=== PATIENT | female | born 1945 | race Caucasian/White ===

== ENCOUNTER 2016-08-18 09:52 | Outpatient (CLI) | payer OTHER ==
--- NOTE | 2016-08-18 11:51 | DIAGNOSTIC IMAGING REPORT ---
PROCEDURE: CT THORAX WITH CONTRAST INDICATION: LUNG MASS, follow-up. TECHNIQUE: 125 ml of Isovue 300 was injected intravenously and axial images were obtained of the chest with coronal and sagittal reformations. COMPARISON: CT chest 02/06/2016. FINDINGS: Resolved and lingular atelectasis with minor residual scarring. No change in the anterior right middle lobe scarring with bronchiectasis. No infiltrates or pulmonary nodules. No adenopathy or effusion. Ascending aorta measures 3.5 cm. Mild cardiomegaly. No coronary atherosclerosis. Small left renal cyst. The visualized upper abdomen is otherwise unremarkable. Mild degenerative changes of the spine. IMPRESSION: 1. Resolved lingular atelectasis with minor residual scarring 2. Stable anterior right middle lobe scarring with bronchiectasis 3. Mild cardiomegaly.
--- NOTE | 2016-08-18 13:56 | DIAGNOSTIC IMAGING REPORT ---
PROCEDURE: MR UPPER EXTREMITY W/O CONT-RT INDICATION: RT SHOULDER PAIN TECHNIQUE: PD and FAT-SAT PD, axial, and coronal-oblique images. PD and STIR sagittal-oblique images. COMPARISON: None. FINDINGS: Caudal angulation of type 2 acromion resulting in mild impingement. Mild AC joint degenerative changes. Thickening and heterogeneous signal of the rotator cuff consistent with tendinosis. There are 2 low signal structures adjacent to the greater tuberosity measuring 5 and 3 mm consistent with calcific tendonitis. There is also a full-thickness tear of the distal supraspinatus tendon anteriorly which measures at 1.6 cm AP. Rotator interval edema suggestive of a tear. Mild subdeltoid and subacromial bursal effusions. Increased signal of the superior labrum suspicious for a tear. Tendinosis of the long head of the bicipital tendon. Normal glenohumeral ligaments. No suspicious osseous lesion. IMPRESSION: 1. Caudal angulation of type 2 acromion resulting in mild impingement 2. Rotator cuff tendinosis with 2 low signal structures suggestive of calcific tendonitis. Recommend x-rays for comparison. 3. Full-thickness tear of the distal supraspinatus tendon anteriorly. There is also rotator interval edema suggestive of a tear. 4. Mild subdeltoid and subacromial bursal effusions 5. Findings suspicious for a superior labral tear 6. Bicipital tendinosis.
== END 2016-08-18 23:00 | disposition home or self-care (01) ==
LOC: CT SRH 09:52
DX: J98.11 Atelectasis (principal); J98.4 Other disorders of lung; S46.811A Strain of other muscles, fascia and tendons at shoulder and upper arm level, right arm, initial encounter; M75.21 Bicipital tendinitis, right shoulder; M75.81 Other shoulder lesions, right shoulder